=== PATIENT | male | born 1985 | race Caucasian/White ===

== ENCOUNTER 2023-02-22 10:37 | Outpatient (AMB) | payer OTHER, SELFPAY ==
--- NOTE | 2023-02-22 11:08 | MHC.OFFWIV ---
Intake Vital Signs 02/22/23 11:10 Weight 194 lb BP 120/80 Blood Pressure Location Lt brachial Position Sitting Pulse 88 Pulse Source Pulse Oximeter Temp 97.7 F Temp Source Temporal Artery Scan Pulse Oximetry (%) 98 Oxygen Delivery Method Room Air Intake Visit Reasons: EP Stomach issues Intake Note: Patient here for stomach issues, hard to sleep which has been present for some time now and it has progressively worsened. no trouble using the bathroom Patient Tobacco Use Status: Never used Tobacco Allergies No Known Allergies Allergy (Verified 02/22/23 15:50) Medication List - Last Reconciled 02/22/23 by Aristeo Zamora MD trazodone 100 mg PO BEDTIME PRN Do you need a note to return to daycare/school/sports/work: No HPI EP Stomach issues HPI Details 37-year-old male presents to the office for a sick visit. Patient is complaining of anxiety symptoms. His mind is racing. When he comes back home he does not feel relaxed. Complains of headache, occasional palpitations. Unable to sleep at night. [facility] Social History Housing: [place] Patient Tobacco Use Status: Never used Tobacco Tobacco use type: Cigar service: No Current occupational status: employed Physical Exam Vital Signs: Last Vital Signs Temp 97.7 F 02/22/23 11:10 Pulse 88 02/22/23 11:10 BP 120/80 02/22/23 11:10 Pulse Ox 98 02/22/23 11:10 Oxygen Delivery Method Room Air 02/22/23 11:10 Const General: cooperative and healthy appearing Nutritional Appearance: well nourished Orientation/consciousness: patient oriented x3 Limitations: no limitations HEENT Head: Yes normal to inspection Eyes General: appearance normal, both eyes and all related structures Neck Neck: Yes normal visual inspection Chest Chest palpation & inspection: normal palpation of entire chest wall Resp Effort & Inspection: normal respiratory effort Neuro General: patient oriented x3 Assessment & Plan Assessment & Plan (1) Generalized anxiety disorder with panic attacks: Code(s): F41.1 - Generalized anxiety disorder; F41.0 - Panic disorder [episodic paroxysmal anxiety] Plan: Patient would need an SSRI. Unable to started in the walk-in set up. I encouraged him to see his primary care provider. Trazodone has been given so that he can sleep a little better at night Medications: New trazodone 100 mg PO BEDTIME PRN 30 tabs 0RF sleep Coding Level of Care Code Est Pt Level 3 (95392) Diagnoses Generalized anxiety disorder with panic attacks F41.1; F41.0
[2023-02-22 11:10] VITALS: BP 120/80; PULSE 88; TEMP 36.5; O2SAT 98
== END 2023-02-22 12:05 | disposition home or self-care (01) ==
PROVIDERS: PCP Nurse Practitioner Family; Visit Provider Internal Medicine
DX: F41.1 Generalized anxiety disorder (principal); F41.0 Panic disorder [episodic paroxysmal anxiety]
CPT/HCPCS: 99213

== ENCOUNTER 2023-04-22 11:30 | Outpatient (AMB) | payer SELFPAY ==
--- NOTE | 2023-04-22 11:34 | MHC.PC.OV ---
Vital Signs 04/22/23 11:37 Height 5 ft 7 in Weight 194 lb BMI 30.4 BP 118/64 Blood Pressure Location Lt brachial Position Sitting Pulse 99 Pulse Source Pulse Oximeter Pulse Oximetry (%) 98 Oxygen Delivery Method Room Air Intake Visit Reasons: Annual PE/Overdue Information Interpreted: clinical only Super[employer]: Offered and Declined Allergies No Known Allergies Allergy (Verified 04/22/23 11:38) Medication List - Last Reconciled 04/22/23 by Alexx Trujillo [facility] No Known Home Meds Tobacco use date assessed: 04/22/23 Dental Screening Dental Screen Date: 04/22/23 Did you have a dental visit in the last 12 months?: No Did you have a dental problem in the last 6 months where you did not have access to dental care?: No Was dental information given to patient?: No HPI Annual PE/Overdue HPI Details Pt is here for a PE. Will order labs. Pt c/o increased anxiety. He states that it is very hard for him to relax. Will start buspirone 5mg bid. Denies any SI and HI. Will check cortisol. May consider hydroxyzine. PFSH Social History Housing: House Patient Tobacco Use Status: Never used Tobacco Tobacco use type: Cigar service: No Current occupational status: employed Questionnaire Thrive Questionnaire Date Thrive assessed: 07/12/21 AUDIT C Alcohol Use Questionnaire (AUDIT-C) 1. How often do you have a drink containing alcohol?: Monthly or less 2. How many drinks containing alcohol do you have on a typical day when you are drinking?: 1 or 2 3. How often do you have six or more drinks on one occasion?: Never Total Score: 1 Score Reviewed/Action Taken: No ROLANDO-7 AMB Questionnaire ROLANDO-7 Date ROLANDO - 7 assessed: 07/12/21 Source: Developed by Drs. Ho Lopes, Shabana Glasgow, Gary Holder and colleagues, with an educational merary from [employer]. Review of Systems Const Denies chills and Denies fever(s) Eyes Denies blurry vision ENT Denies vertigo, Denies dizziness and Denies sore throat Card Denies chest pain at rest, Denies chest pain with activity, Denies diaphoresis, Denies dyspnea and Denies dyspnea on exertion Resp Denies cough, Denies dyspnea, Denies dyspnea on exertion and Denies wheezing GI Denies abdominal pain, Denies melena, Denies hematochezia, Denies constipation, Denies diarrhea and Denies loose stools Denies hematuria Musc Denies numbness and Denies tingling Skin/Breast Denies lesions Neuro Denies vertigo, Denies dizziness, Denies numbness and Denies tingling Psych Denies anxiety, Denies depression, Denies homicidal ideation, Denies suicidal ideation and Denies other (substance abuse) Aller/Immun Denies wheezing Physical exam (Primary Care) Vital Signs: Last Vital Signs Pulse 99 04/22/23 11:37 BP 118/64 04/22/23 11:37 Pulse Ox 98 04/22/23 11:37 Oxygen Delivery Method Room Air 04/22/23 11:37 BMI result Body Mass Index 30.4 Tobacco/Smoking Status: Tobacco use Status Tobacco use date assessed 04/22/23 04/22/23 11:40 Patient Tobacco Use Status Never used Tobacco 04/22/23 11:40 Tobacco use type Cigar 04/22/23 11:40 Thrive Assessment: Date of Thrive Assessment Date Thrive assessed 07/12/21 04/22/23 11:40 Const General: cooperative Nutritional Appearance: well nourished Orientation/consciousness: patient oriented x3 HENMT Head: Yes normal to inspection, Yes normocephalic and Yes atraumatic Ears: TM's normal bilaterally Eyes General: appearance normal, both eyes and all related structures Alignment and Position: alignment normal and position normal Neck Neck: Yes normal visual inspection and Yes no lymphadenopathy Thyroid: Thyroid normal Resp Effort & Inspection: normal respiratory effort Auscultation: clear to auscultation bilaterally Cardio Rate: regular rate Rhythm: regular rhythm Heart sounds: S1 normal heart sound present, S2 normal heart sound present and no murmurs GI Palpation (GI): Soft to palpation and nontender Auscultation: normal bowel sounds Male General Exam: Yes normal external exam Penis: normal penis Scrotum: scrotum normal, testes descended bilaterally and no inguinal hernias Testes: no testicular mass Skin Rashes: no rashes Neuro General: patient oriented x3, moves all extremities, no focal motor deficits and deep tendon reflexes 2+ bilaterally Romberg Test: Negative Psych Appearance: grossly normal Mental Status: mental status grossly normal Speech and movement: Normal speech and movement present Affect: normal affect Attitude: cooperative Thought process: Normal thought process present Thought content: Normal thought content present Insight: Good insight present (Psych) Judgement: Good judgement present (Psych) Assessment and Plan Assessment & Plan (1) Physical exam: Code(s): Z00.00 - Encounter for general adult medical examination without abnormal findings Plan: Labs ordered (2) Generalized anxiety disorder with panic attacks: Code(s): F41.1 - Generalized anxiety disorder; F41.0 - Panic disorder [episodic paroxysmal anxiety] Plan: starting buspirone Plan The patient agreed to the use of a medical case worker for this encounter. Scribed for SIENA Lorenzo- by Priti Degroot medical case worker, on 04/22/2023 at 11:45 EST Orders: Orders Comprehensive [place]. Panel Fast Today Z00.00 - Encounter for general adult medical examination without abnormal findings UA CC w/rflx Micro + Cult Today Z00.00 - Encounter for general adult medical examination without abnormal findings Lipid Panel Today Z00.00 - Encounter for general adult medical examination without abnormal findings Cortisol Random Today F41.0 - Panic disorder [episodic paroxysmal anxiety], F41.1 - Generalized anxiety disorder Complete Blood Count Auto Diff Today Z00.00 - Encounter for general adult medical examination without abnormal findings TSH reflex Free T4 Today Z00.00 - Encounter for general adult medical examination without abnormal findings Medications: New buspirone 5 mg PO BID 60 tabs 3RF 30 days Coding Level of Care Code Est Pt Prev Care 18-39y(58953) Diagnoses Physical exam Z00.00 Generalized anxiety disorder with panic attacks F41.1; F41.0
[2023-04-22 11:37] VITALS: BP 118/64; PULSE 99; O2SAT 98; BMI 30.4
== END 2023-04-22 12:04 | disposition home or self-care (01) ==
PROVIDERS: PCP Nurse Practitioner Family; Visit Provider Nurse Practitioner Family
DX: Z00.00 Encounter for general adult medical examination without abnormal findings (principal); F41.1 Generalized anxiety disorder; F41.0 Panic disorder [episodic paroxysmal anxiety]
CPT/HCPCS: 99395